=== PATIENT | female | born 1975 | race Caucasian/White ===

== ENCOUNTER → 2024-06-01 14:50 | Outpatient (REF) | payer OTHER, SELFPAY | LOC: HWRCS 14:50 | PROVIDERS: ATTENDING PHYSICIAN Internal Medicine Cardiovascular Disease; FAMILY PHYSICIAN Student in an Organized Health Care Education/Training Program | DX: Z13.6 Encounter for screening for cardiovascular disorders (principal); Z82.79 Family history of other congenital malformations, deformations and chromosomal abnormalities | CPT/HCPCS: 93306 ==